=== PATIENT | female | born 1955 | race Caucasian/White ===

== ENCOUNTER 2018-10-07 09:42 | Day surgery (SDC) | payer BC ==
[2018-10-07] MEDS ORDERED: MIDAZOLAM 1 MG/ML 2 ML INJ ×2 (12:42)
[2018-10-07] MEDS ORDERED: FENTAnyl 50 MCG/ML VIAL (12:42)
== END 2018-10-07 15:35 | disposition home or self-care (01) ==
LOC: GIL 09:42
DX: Z12.11 Encounter for screening for malignant neoplasm of colon (principal); K64.8 Other hemorrhoids; K29.50 Unspecified chronic gastritis without bleeding; K21.9 Gastro-esophageal reflux disease without esophagitis
CPT/HCPCS: 43239; 88305; 88312